=== PATIENT | male | born 1970 | race Caucasian/White ===

== ENCOUNTER 2019-05-22 12:10 | Emergency (ER) | payer MEDICAID ==
[~2019-05-22] VITALS: Ht 172.7 cm; Wt 65.0 kg
[~2019-05-22 12:10] MED LIST: LIDOcaine 1% W/epiNEPHrine 1:100,000 20ml vial ONE
[2019-05-22 12:16] VITALS: BP 131/79
[2019-05-22] MEDS ORDERED: CEPH-572 PO (12:51)
[2019-05-22] MEDS ORDERED: SULF1TAB49 PO (12:51)
== END 2019-05-22 13:03 | disposition home or self-care (01) ==
LOC: ER 12:11
DX: L02.612 Cutaneous abscess of left foot (principal); F11.10 Opioid abuse, uncomplicated; Z79.2 Long term (current) use of antibiotics
CPT/HCPCS: 10060; 99283

== ENCOUNTER 2019-05-24 18:00 | Emergency (ER) | payer MEDICAID ==
[~2019-05-24] VITALS: Ht 182.9 cm; Wt 81.0 kg
[~2019-05-24 18:00] MED LIST changes: +CEPH-572 PO; -LIDOcaine 1% W/epiNEPHrine 1:100,000 20ml vial ONE; +SULF1TAB49 PO
[2019-05-24 18:05] VITALS: BP 125/80
== END 2019-05-24 18:45 | disposition home or self-care (01) ==
LOC: ER 18:00
DX: L02.611 Cutaneous abscess of right foot (principal); Z48.01 Encounter for change or removal of surgical wound dressing; Z79.2 Long term (current) use of antibiotics
CPT/HCPCS: 99281

== ENCOUNTER 2020-01-26 18:31 | Inpatient (IN) | payer MEDICAID ==
[~2020-01-26] VITALS: Ht 182.9 cm; Wt 79.3 kg
[2020-01-26 19:50] LABS: BASOPHILS # (AUTO) 0.1 X10'3 (0-0.2); BASOPHILS % (AUTO) 0.4 % (0-1); EOSINOPHILS # (AUTO) 0.3 X10'3 (0-0.9); EOSINOPHILS % (AUTO) 1.9 % (0-6); HEMOGLOBIN 11.4 g/dl (14.0-17.9); LYMPHOCYTES # (AUTO) 2.3 X10'3 (1.1-4.8); LYMPHOCYTES % (AUTO) 15.2 % (21-51); MEAN CORPUSCULAR HGB CONC 33.6 g/dL (33.0-36.5); MEAN CORPUSCULAR VOLUME 86.5 FL (78-98); MEAN PLATELET VOLUME 7.4 FL (7.4-10.4); MONOCYTES # (AUTO) 1.2 X10'3 (0-0.9); NEUTROPHILS # (AUTO) 11.3 X10'3 (1.8-7.7); NEUTROPHILS % (AUTO) 74.5 % (42-75); PLATELET COUNT 407 X10'3 (140-440); RED BLOOD COUNT 3.94 X10'6 (4.70-6.10); RED CELL DISTRIBUTION WIDTH 13.8 % (11.5-14.5); WHITE BLOOD COUNT 15.2 X10'3 (4.5-11.0)
[2020-01-26 20:04] LABS: PARTIAL THROMBOPLASTIN TIME 32 SECONDS (22-32)
[2020-01-26 20:16] LABS: ALANINE AMINOTRANSFERASE 65 U/L (12-78); ALBUMIN/GLOBULIN RATIO 0.7 (1.1-1.5); ALKALINE PHOSPHATASE 44 IU/L (46-116); ANION GAP 9 (8-16); ASPARTATE AMINO TRANSFERASE 81 U/L (10-37); BILIRUBIN,TOTAL 0.3 MG/DL (0.1-1.0); C-REACTIVE PROTEIN 4.29 MG/DL (0.0-0.5); CALCIUM 8.2 MG/DL (8.5-10.1); CHLORIDE 101 MMOL/L (99-107); MAGNESIUM 1.9 MG/DL (1.5-2.4); POTASSIUM 3.5 MMOL/L (3.5-5.1); SODIUM 139 MMOL/L (135-145); TOTAL CARBON DIOXIDE 28.6 MMOL/L (24-32); TOTAL PROTEIN 7.2 G/DL (6.4-8.2); eGFR 59 ML/MIN
[2020-01-26 20:19] LABS: BLOOD UREA NITROGEN 10 MG/DL (7-18); BUN/CREATININE RATIO 7.7 (5.4-32.0); GLUCOSE 120 MG/DL (70-104)
[2020-01-26] MEDS ORDERED: normal saline 1000ML IV soln IVB ONE (20:40)
[2020-01-26] MEDS ORDERED: LIDOcaine 1% w/epiNEPHrine 1:200,000 30ml vial SQ ONE (22:15)
[2020-01-26] MEDS ORDERED: LORazepam 2 mg/ml vial IV ONE (22:20)
--- NOTE | 2020-01-26 22:30 | NUR ---
pa at bedside performing i&d on patient
[2020-01-26] MEDS ORDERED: NO HOME MEDS (22:32)
--- NOTE | 2020-01-26 22:50 | NUR ---
dressing wound with tech
[2020-01-26] MEDS ORDERED: magnesium hydroxide 30ml (MOM) UD suspension PO PRN (23:00)
[2020-01-26] MEDS ORDERED: ondansetron/PF 4mg/2ml inj IV PRN (23:00)
[2020-01-26] MEDS ORDERED: mag hydrox/Alum hydrox/simeth 30ml oral suspension PO PRN (23:00)
[2020-01-26] MEDS ORDERED: acetaminophen 325mg tablet PO PRN (23:00)
[2020-01-26] MEDS ORDERED: methadone 10mg tablet PO ONE (23:05)
--- NOTE | 2020-01-26 23:16 | NUR ---
pt given meds sleeping very comfortably but easy to arouse
[2020-01-27] MEDS ORDERED: TETanus/Pertussis (Acell)/Diphther VAC/PF (Tdap-Adult) 0.5ml syringe IMVAC ONE
[2020-01-27] MEDS: normal saline 1000ml 1,000 ML IV SCH ×2 (00:02→16:13)
--- NOTE | 2020-01-27 00:05 | NUR ---
pt sleeping but easy to arouse, ns was started at 100ml/hr
--- NOTE | 2020-01-27 00:13 | NUR ---
gave tetnus shot and a warm blanket
[2020-01-27 00:55] VITALS: BP 142/86
[2020-01-27] MEDS ORDERED: VANCOMYCIN 1,500MG inj. 1,500 MG in normal saline 500ml IV soln 500 ML IV ONE (01:00)
--- NOTE | 2020-01-27 01:08 | NUR ---
RC'D VERBAL REPORT FROM PHILLY AND ASSUMED CARE OF PATIENT WHEN HE ARRIVED VIA W/C AT 0050. PATIENT ASKING FOR PAIN MEDS BUT IMMEDIATELY CURLED UP ONTO R SIDE AND FELL ASLEEP. WAKES EASILY, GIVEN CALL LIGHT AND EXPLAINED ITS USE, URINAL AT BEDSIDE. IV FLDS INFUSING ORDERED. BED LOW, LOCKED AND 2 RAILS UP.
[2020-01-27 05:04] LABS: BASOPHILS # (AUTO) 0.1 X10'3 (0-0.2); BASOPHILS % (AUTO) 0.6 % (0-1); EOSINOPHILS # (AUTO) 0.3 X10'3 (0-0.9); EOSINOPHILS % (AUTO) 2.6 % (0-6); HEMATOCRIT 34.8 % (42.0-52.0); HEMOGLOBIN 11.4 g/dl (14.0-17.9); LYMPHOCYTES # (AUTO) 2.9 X10'3 (1.1-4.8); LYMPHOCYTES % (AUTO) 22.6 % (21-51); MEAN CORPUSCULAR HEMOGLOBIN 28.6 PG (27.0-31.0); MEAN CORPUSCULAR HGB CONC 32.8 g/dL (33.0-36.5); MEAN CORPUSCULAR VOLUME 87.2 FL (78-98); MEAN PLATELET VOLUME 7.4 FL (7.4-10.4); MONOCYTES % (AUTO) 8.1 % (2-12); NEUTROPHILS # (AUTO) 8.5 X10'3 (1.8-7.7); NEUTROPHILS % (AUTO) 66.1 % (42-75); PLATELET COUNT 394 X10'3 (140-440); RED BLOOD COUNT 3.99 X10'6 (4.70-6.10); RED CELL DISTRIBUTION WIDTH 13.7 % (11.5-14.5); WHITE BLOOD COUNT 12.8 X10'3 (4.5-11.0)
[2020-01-27 05:06] LABS: ALANINE AMINOTRANSFERASE 55 U/L (12-78); ALBUMIN 2.8 G/DL (3.4-5.0); ALBUMIN/GLOBULIN RATIO 0.6 (1.1-1.5); ALKALINE PHOSPHATASE 44 IU/L (46-116); ANION GAP 7 (8-16); ASPARTATE AMINO TRANSFERASE 62 U/L (10-37); BILIRUBIN,TOTAL 0.4 MG/DL (0.1-1.0); CALCIUM 8.3 MG/DL (8.5-10.1); CHLORIDE 109 MMOL/L (99-107); CREATININE 1.05 MG/DL (0.60-1.10); POTASSIUM 3.8 MMOL/L (3.5-5.1); SODIUM 143 MMOL/L (135-145); TOTAL CARBON DIOXIDE 26.6 MMOL/L (24-32); TOTAL PROTEIN 7.3 G/DL (6.4-8.2); eGFR 76 ML/MIN
[2020-01-27 05:11] LABS: GLUCOSE 107 MG/DL (70-104)
[2020-01-27 05:15] LABS: BLOOD UREA NITROGEN 10 MG/DL (7-18); BUN/CREATININE RATIO 9.5 (5.4-32.0)
--- NOTE | 2020-01-27 06:11 | NUR ---
REPORT GIVEN TO MOMO FELTON
[2020-01-27 07:00] VITALS: BP 123/72
[2020-01-27] MEDS: methadone 10mg tablet PO SCH ×2 (08:38→19:42)
[2020-01-27] MEDS: heparin, porcine 5000 units/ml vial SQ SCH ×2 (08:39→19:41)
[2020-01-27] MEDS: vancomycin/NS 1 GM ADD-VANTAGE 250 ML IV SCH ×2 (10:00→18:23)
[2020-01-27 11:00] VITALS: BP 124/74
[2020-01-27] MEDS: morphine 2 MG/ML inj. syringe IV PRN (13:59)
[2020-01-27] MEDS ORDERED: vancomycin/NS 1 GM ADD-VANTAGE 250 ML IV SCH (14:00)
--- NOTE | 2020-01-27 18:41 | NUR ---
Patient in room [facility]. I have received report from Mamta FELTON and had the opportunity to ask questions and assume patient care.
[2020-01-27] MEDS: lactobacillus rhamnosus 10,000 MMU CELLS/CAPSULE PO SCH (19:41)
[2020-01-27 20:00] VITALS: BP 152/92
[2020-01-28] VITALS: BP 127/72
[2020-01-28] MEDS: morphine 2 MG/ML inj. syringe IV PRN ×6 (01:31→22:38)
[2020-01-28] MEDS: vancomycin/NS 1 GM ADD-VANTAGE 250 ML IV SCH (01:31)
[2020-01-28] MEDS: normal saline 1000ml 1,000 ML IV SCH ×3 (04:33→14:58)
--- NOTE | 2020-01-28 06:12 | NUR ---
Problems reprioritized. Patient report given, questions answered & plan of care reviewed with MOMO FELTON.
[2020-01-28 08:00] VITALS: BP 149/89
[2020-01-28] MEDS: heparin, porcine 5000 units/ml vial SQ SCH ×2 (08:31→19:50)
[2020-01-28] MEDS: methadone 10mg tablet PO SCH ×2 (08:31→19:50)
[2020-01-28] MEDS: lactobacillus rhamnosus 10,000 MMU CELLS/CAPSULE PO SCH ×2 (08:31→19:49)
[2020-01-28] MEDS ORDERED: VANCOMYCIN LEVEL IV ONE (09:30)
[2020-01-28 09:53] LABS: BASOPHILS # (AUTO) 0.1 X10'3 (0-0.2); BASOPHILS % (AUTO) 0.9 % (0-1); EOSINOPHILS # (AUTO) 0.4 X10'3 (0-0.9); EOSINOPHILS % (AUTO) 5.2 % (0-6); HEMATOCRIT 36.5 % (42.0-52.0); HEMOGLOBIN 12.3 g/dl (14.0-17.9); LYMPHOCYTES % (AUTO) 26.1 % (21-51); MEAN CORPUSCULAR HEMOGLOBIN 29.5 PG (27.0-31.0); MEAN CORPUSCULAR HGB CONC 33.7 g/dL (33.0-36.5); MEAN CORPUSCULAR VOLUME 87.5 FL (78-98); MEAN PLATELET VOLUME 7.6 FL (7.4-10.4); MONOCYTES # (AUTO) 0.5 X10'3 (0-0.9); MONOCYTES % (AUTO) 6.3 % (2-12); NEUTROPHILS # (AUTO) 4.8 X10'3 (1.8-7.7); NEUTROPHILS % (AUTO) 61.5 % (42-75); PLATELET COUNT 425 X10'3 (140-440); RED BLOOD COUNT 4.17 X10'6 (4.70-6.10); RED CELL DISTRIBUTION WIDTH 13.8 % (11.5-14.5); WHITE BLOOD COUNT 7.8 X10'3 (4.5-11.0)
[2020-01-28 10:12] LABS: ALANINE AMINOTRANSFERASE 48 U/L (12-78); ALBUMIN 2.8 G/DL (3.4-5.0); ALBUMIN/GLOBULIN RATIO 0.6 (1.1-1.5); ALKALINE PHOSPHATASE 41 IU/L (46-116); ANION GAP 7 (8-16); ASPARTATE AMINO TRANSFERASE 35 U/L (10-37); BILIRUBIN,TOTAL 0.4 MG/DL (0.1-1.0); BLOOD UREA NITROGEN 9 MG/DL (7-18); BUN/CREATININE RATIO 8.7 (5.4-32.0); CALCIUM 8.5 MG/DL (8.5-10.1); CHLORIDE 107 MMOL/L (99-107); CREATININE 1.03 MG/DL (0.60-1.10); POTASSIUM 3.9 MMOL/L (3.5-5.1); SODIUM 143 MMOL/L (135-145); TOTAL CARBON DIOXIDE 28.7 MMOL/L (24-32); TOTAL PROTEIN 7.2 G/DL (6.4-8.2); eGFR 77 ML/MIN
[2020-01-28 10:14] LABS: GLUCOSE 106 MG/DL (70-104)
[2020-01-28 11:00] VITALS: BP 136/89
[2020-01-28] MEDS: VANCOmycin 1250MG/NS 250ml Bag 250 ML IV SCH ×2 (11:54→22:31)
--- NOTE | 2020-01-28 18:30 | NUR ---
Patient in room [facility]. I have received report from Mamta FELTON and had the opportunity to ask questions and assume patient care.
--- NOTE | 2020-01-28 19:50 | NUR ---
Patients PIV came out. Took 4 attempts and PIV 22 guage to R Hand.
[2020-01-28 20:00] VITALS: BP 129/79
--- NOTE | 2020-01-28 22:30 | NUR ---
Patients' new PIV to right hand came out and unable to save after he had taken his shower. New PIV to be inserted.
[2020-01-29] VITALS: BP 122/78
[2020-01-29] MEDS: normal saline 1000ml 1,000 ML IV SCH ×2 (00:58→03:56)
[2020-01-29] MEDS: morphine 2 MG/ML inj. syringe IV PRN ×3 (03:54→12:32)
[2020-01-29] MEDS: VANCOmycin 1250MG/NS 250ml Bag 250 ML IV SCH ×2 (04:03→12:26)
[2020-01-29 05:00] LABS: BASOPHILS # (AUTO) 0.1 X10'3 (0-0.2); BASOPHILS % (AUTO) 1.9 % (0-1); EOSINOPHILS # (AUTO) 0.5 X10'3 (0-0.9); EOSINOPHILS % (AUTO) 7.9 % (0-6); HEMATOCRIT 35.6 % (42.0-52.0); HEMOGLOBIN 11.9 g/dl (14.0-17.9); LYMPHOCYTES # (AUTO) 2.8 X10'3 (1.1-4.8); LYMPHOCYTES % (AUTO) 40.1 % (21-51); MEAN CORPUSCULAR HEMOGLOBIN 28.9 PG (27.0-31.0); MEAN CORPUSCULAR HGB CONC 33.4 g/dL (33.0-36.5); MEAN CORPUSCULAR VOLUME 86.7 FL (78-98); MEAN PLATELET VOLUME 7.4 FL (7.4-10.4); MONOCYTES # (AUTO) 0.5 X10'3 (0-0.9); MONOCYTES % (AUTO) 7.6 % (2-12); NEUTROPHILS % (AUTO) 42.5 % (42-75); PLATELET COUNT 426 X10'3 (140-440); RED CELL DISTRIBUTION WIDTH 13.6 % (11.5-14.5); WHITE BLOOD COUNT 6.9 X10'3 (4.5-11.0)
[2020-01-29 05:20] LABS: ALANINE AMINOTRANSFERASE 38 U/L (12-78); ALBUMIN 2.6 G/DL (3.4-5.0); ALBUMIN/GLOBULIN RATIO 0.6 (1.1-1.5); ALKALINE PHOSPHATASE 37 IU/L (46-116); ANION GAP 7 (8-16); ASPARTATE AMINO TRANSFERASE 25 U/L (10-37); BILIRUBIN,TOTAL 0.3 MG/DL (0.1-1.0); BLOOD UREA NITROGEN 16 MG/DL (7-18); BUN/CREATININE RATIO 16.5 (5.4-32.0); CALCIUM 8.3 MG/DL (8.5-10.1); CHLORIDE 108 MMOL/L (99-107); CREATININE 0.97 MG/DL (0.60-1.10); POTASSIUM 3.8 MMOL/L (3.5-5.1); SODIUM 142 MMOL/L (135-145); TOTAL PROTEIN 7.1 G/DL (6.4-8.2); eGFR 83 ML/MIN
[2020-01-29 05:25] LABS: GLUCOSE 93 MG/DL (70-104)
--- NOTE | 2020-01-29 06:08 | NUR ---
Problems reprioritized. Patient report given, questions answered & plan of care reviewed with Gilberto FELTON.
[2020-01-29 07:00] VITALS: BP 131/86
[2020-01-29] MEDS: methadone 10mg tablet PO SCH (08:23)
[2020-01-29] MEDS: heparin, porcine 5000 units/ml vial SQ SCH (08:23)
[2020-01-29] MEDS: lactobacillus rhamnosus 10,000 MMU CELLS/CAPSULE PO SCH (08:23)
[2020-01-29] MEDS ORDERED: VANCOMYCIN LEVEL IV ONE (11:30)
[2020-01-29] MEDS ORDERED: SULF1TAB49 PO (11:34)
[2020-01-29 12:00] VITALS: BP 136/81
--- NOTE | 2020-01-29 12:24 | NUR ---
Critical vanco of 20.2. paged regarding result, vanco due at 1200 spoke to charge nurse Buffy and recommended I contact the pharmacist. Spoke with the pharmacist and informed me the ideal range is up to 20 so stated to proceed with the next dose to keep it at the ideal range.
--- NOTE | 2020-01-29 13:15 | NUR ---
Spoke with Md Etienne, Bactrim DS tab had no dosage so he ordered Bactrim 160/800 to be called into the patient's pharmacy, [facility] on [address].
--- NOTE | 2020-01-29 13:21 | NUR ---
D/C medications called in by Resource nurse.
--- NOTE | 2020-01-29 13:56 | NUR ---
Wound care POC. Arrived at bedside for assessment. Pt is discharging today. Assessed abscess to right medial ankle. MD bedside. There is local edema, firm to palpation. Cleansed with wound cleanser, rinsed with saline, taught pt how to apply dressing with therahoney and silver alginate and secured with optifoam. Educated pt on follow up with outpatient wound care and the [facility] for continued care. Educated him on signs of infection that would need to be evaluated in the ED. Materials left for multiple dressing changes and all questions answered bedside.
--- NOTE | 2020-01-29 14:40 | NUR ---
Patient discharged home into the care of their aunt. Patient alert, oriented, and appropriate for discharge. Patient left with all belongings and verbalized understanding of discharge instructions. Patient will follow up with inpatient woundcare per orders. Medications called into [facility] on [address] patient will rock picker. Patient wound photos taken during woundcare. Patient IV removed, patient not on tele.
[2020-01-30] MEDS ORDERED: BACDS PO (19:23)
== END 2020-01-29 14:37 | disposition home or self-care (01) | DRG 383 ==
LOC: ER 18:31 → ED HOLD 22:58 → SUR 3N 01-27 00:50
PROVIDERS: ADMIT Internal Medicine; ATTEND Family Medicine
DX: L03.115 Cellulitis of right lower limb (principal); F11.10 Opioid abuse, uncomplicated; Z59.0 Homelessness; R01.1 Cardiac murmur, unspecified
CPT/HCPCS: 10060; 36415; 73600; 80053; 80202; 83605; 83735; 83880; 84145; 85025; 85610; 85651; 85730; 86140; 87040; 87081; 90715; 93005; 93306; 96374; 99285; G0378; J1644; J2060; J2270; J3370; J7030; J7040

== ENCOUNTER 2020-01-30 18:18 | Emergency (ER) | payer MEDICAID ==
[~2020-01-30] VITALS: Ht 185.4 cm; Wt 86.4 kg
[~2020-01-30 18:18] MED LIST changes: -CEPH-572 PO
[2020-01-30] MEDS ORDERED: BACDS PO (19:23)
[2020-01-30 19:55] VITALS: BP 132/90
== END 2020-01-30 19:57 | disposition home or self-care (01) ==
LOC: ER 18:18
DX: L02.415 Cutaneous abscess of right lower limb (principal); F11.90 Opioid use, unspecified, uncomplicated; Z86.14 Personal history of Methicillin resistant Staphylococcus aureus infection; Z60.2 Problems related to living alone; Z56.0 Unemployment, unspecified; Z59.0 Homelessness; Z79.2 Long term (current) use of antibiotics
CPT/HCPCS: 99283

== ENCOUNTER 2020-02-01 10:58 | Day surgery (SDC) | payer MEDICAID ==
[~2020-02-01 10:58] MED LIST changes: +BACDS PO
[2020-02-01] MEDS ORDERED: LIDOcaine 2% 5ml jelly ONE (11:31)
== END 2020-02-01 12:27 | disposition home or self-care (01) ==
LOC: WOUND CARE 10:58
PROVIDERS: ATTEND Nurse Practitioner
DX: L97.312 Non-pressure chronic ulcer of right ankle with fat layer exposed (principal); R01.1 Cardiac murmur, unspecified; F17.210 Nicotine dependence, cigarettes, uncomplicated; Z79.2 Long term (current) use of antibiotics; F11.90 Opioid use, unspecified, uncomplicated; Z86.14 Personal history of Methicillin resistant Staphylococcus aureus infection
CPT/HCPCS: 97597

== ENCOUNTER 2020-02-07 14:02 | Day surgery (SDC) | payer MEDICAID ==
[~2020-02-07 14:02] MED LIST changes: -SULF1TAB49 PO
[2020-02-07] MEDS ORDERED: LIDOcaine 2% 5ml jelly ONE (14:15)
== END 2020-02-07 14:45 | disposition home or self-care (01) ==
LOC: WOUND CARE 14:02
PROVIDERS: ATTEND Nurse Practitioner
DX: L97.312 Non-pressure chronic ulcer of right ankle with fat layer exposed (principal); F17.210 Nicotine dependence, cigarettes, uncomplicated; F11.90 Opioid use, unspecified, uncomplicated; Z79.01 Long term (current) use of anticoagulants; Z86.14 Personal history of Methicillin resistant Staphylococcus aureus infection
CPT/HCPCS: 97597

== ENCOUNTER 2020-03-03 09:41 | Emergency (ER) | payer MEDICAID ==
[~2020-03-03] VITALS: Ht 182.9 cm; Wt 86.4 kg
[2020-03-03] MEDS ORDERED: SULF1TAB49 PO (11:10)
[2020-03-03] MEDS ORDERED: CEPH500C5 PO (11:10)
[2020-03-03 11:22] VITALS: BP 149/91
== END 2020-03-03 11:23 | disposition home or self-care (01) ==
LOC: ER 09:43
DX: L02.11 Cutaneous abscess of neck (principal); F11.90 Opioid use, unspecified, uncomplicated; Z86.14 Personal history of Methicillin resistant Staphylococcus aureus infection; Z59.0 Homelessness; Z56.0 Unemployment, unspecified; Z79.2 Long term (current) use of antibiotics
CPT/HCPCS: 99283

== ENCOUNTER 2020-03-06 15:31 | Emergency (ER) | payer MEDICAID ==
[~2020-03-06] VITALS: Ht 185.4 cm; Wt 80.0 kg
[~2020-03-06 15:31] MED LIST changes: -BACDS PO; +CEPH500C5 PO; +SULF1TAB49 PO
[2020-03-06] MEDS ORDERED: NALO4SPR NS (16:55)
[2020-03-06 17:17] VITALS: BP 132/61
== END 2020-03-06 17:10 | disposition home or self-care (01) ==
LOC: ER 15:32
DX: L02.11 Cutaneous abscess of neck (principal); F11.90 Opioid use, unspecified, uncomplicated; Z86.14 Personal history of Methicillin resistant Staphylococcus aureus infection; Z59.0 Homelessness; Z56.0 Unemployment, unspecified; Z60.2 Problems related to living alone; Z79.899 Other long term (current) drug therapy
CPT/HCPCS: 99284

== ENCOUNTER 2020-10-13 14:35 | Emergency (ER) | payer MEDICAID ==
[~2020-10-13] VITALS: Ht 182.9 cm; Wt 88.6 kg
[~2020-10-13 14:35] MED LIST changes: +LIDOcaine 1% w/epiNEPHrine 1:200,000 30ml vial ONE; +NALO4SPR NS; -SULF1TAB49 PO
[2020-10-13 14:42] VITALS: BP 150/99
--- NOTE | 2020-10-13 15:33 | NUR ---
ROSITA Bates at bedside to evaluate patient.
--- NOTE | 2020-10-13 16:13 | NUR ---
Lab at bedside for blood draw.
[2020-10-13 16:33] LABS: BASOPHILS # (AUTO) 0.1 X10'3 (0-0.2); BASOPHILS % (AUTO) 0.9 % (0-1); EOSINOPHILS # (AUTO) 0.4 X10'3 (0-0.9); EOSINOPHILS % (AUTO) 5.5 % (0-6); HEMATOCRIT 37.5 % (42.0-52.0); HEMOGLOBIN 12.6 g/dl (14.0-17.9); LYMPHOCYTES # (AUTO) 2.3 X10'3 (1.1-4.8); LYMPHOCYTES % (AUTO) 34.2 % (21-51); MEAN CORPUSCULAR HEMOGLOBIN 28.5 PG (27.0-31.0); MEAN CORPUSCULAR HGB CONC 33.6 g/dL (33.0-36.5); MEAN CORPUSCULAR VOLUME 84.7 FL (78-98); MEAN PLATELET VOLUME 7.4 FL (7.4-10.4); MONOCYTES # (AUTO) 0.5 X10'3 (0-0.9); MONOCYTES % (AUTO) 7.1 % (2-12); NEUTROPHILS # (AUTO) 3.5 X10'3 (1.8-7.7); NEUTROPHILS % (AUTO) 52.3 % (42-75); PLATELET COUNT 450 X10'3 (140-440); RED BLOOD COUNT 4.43 X10'6 (4.70-6.10); RED CELL DISTRIBUTION WIDTH 13.9 % (11.5-14.5); WHITE BLOOD COUNT 6.6 X10'3 (4.5-11.0)
[2020-10-13 16:43] LABS: ALANINE AMINOTRANSFERASE 20 U/L (12-78); ALBUMIN 3.3 G/DL (3.4-5.0); ALBUMIN/GLOBULIN RATIO 0.6 (1.1-1.5); ALKALINE PHOSPHATASE 50 IU/L (46-116); ANION GAP 6 (8-16); ASPARTATE AMINO TRANSFERASE 23 U/L (10-37); BILIRUBIN,TOTAL 0.3 MG/DL (0.1-1.0); BLOOD UREA NITROGEN 19 MG/DL (7-18); BUN/CREATININE RATIO 19.6 (5.4-32.0); CALCIUM 8.5 MG/DL (8.5-10.1); CHLORIDE 102 MMOL/L (99-107); CREATININE 0.97 MG/DL (0.60-1.10); POTASSIUM 4.2 MMOL/L (3.5-5.1); SODIUM 137 MMOL/L (135-145); TOTAL CARBON DIOXIDE 28.6 MMOL/L (24-32); TOTAL PROTEIN 8.4 G/DL (6.4-8.2); eGFR 83 ML/MIN
[2020-10-13 16:44] LABS: GLUCOSE 113 MG/DL (70-104)
[2020-10-13] MEDS ORDERED: iohexol 300mg/ml 100ml inj. ONE (16:50)
[2020-10-13] MEDS ORDERED: cephalexin 250mg capsule PO ONE (17:05)
[2020-10-13] MEDS ORDERED: sulfamethoxazole/trimethoprim DS (800/160mg) tablet PO ONE (17:05)
--- NOTE | 2020-10-13 17:30 | NUR ---
Pt to CT via W/C
[2020-10-13] MEDS ORDERED: CEPH500C5 PO (17:35)
[2020-10-13] MEDS ORDERED: NALO4SPR NS (17:35)
[2020-10-13] MEDS ORDERED: SULF1TAB49 PO (17:35)
== END 2020-10-13 18:17 | disposition home or self-care (01) ==
LOC: ER 14:35
DX: L02.414 Cutaneous abscess of left upper limb (principal); L02.413 Cutaneous abscess of right upper limb; L03.114 Cellulitis of left upper limb; L03.113 Cellulitis of right upper limb; F11.10 Opioid abuse, uncomplicated
CPT/HCPCS: 36415; 73201; 80053; 83605; 84145; 85025; 99285; Q9967

== ENCOUNTER 2021-03-17 16:46 | Emergency (ER) | payer MEDICAID ==
[~2021-03-17] VITALS: Ht 182.9 cm; Wt 88.0 kg
[~2021-03-17 16:46] MED LIST changes: -CEPH500C5 PO; -LIDOcaine 1% w/epiNEPHrine 1:200,000 30ml vial ONE
[2021-03-17 18:57] VITALS: BP 154/109
[2021-03-17] MEDS ORDERED: cephalexin 500mg capsule PO ONE (19:15)
[2021-03-17] MEDS ORDERED: sulfamethoxazole/trimethoprim DS (800/160mg) tablet PO ONE (19:15)
[2021-03-17] MEDS ORDERED: NALO4SPR BOTHNARES (19:16)
[2021-03-17] MEDS ORDERED: CEPH-585 PO (19:16)
[2021-03-17] MEDS ORDERED: SULF1TAB49 PO (19:16)
== END 2021-03-17 19:36 | disposition home or self-care (01) ==
LOC: ER 16:46
DX: L03.116 Cellulitis of left lower limb (principal); L02.413 Cutaneous abscess of right upper limb; R11.0 Nausea; F15.90 Other stimulant use, unspecified, uncomplicated; F11.90 Opioid use, unspecified, uncomplicated; F17.200 Nicotine dependence, unspecified, uncomplicated; Z56.0 Unemployment, unspecified; Z86.14 Personal history of Methicillin resistant Staphylococcus aureus infection; Z86.19 Personal history of other infectious and parasitic diseases; Z79.2 Long term (current) use of antibiotics; Z79.899 Other long term (current) drug therapy
CPT/HCPCS: 99283

== ENCOUNTER 2021-04-14 13:23 | Emergency (ER) | payer MEDICAID ==
[~2021-04-14] VITALS: Ht 182.9 cm; Wt 81.8 kg
[~2021-04-14 13:23] MED LIST changes: +CEPH-585 PO; +LIDOcaine 1% 30ml preserv. free vial ONE; +NALO4SPR BOTHNARES; +SULF1TAB49 PO
[2021-04-14] MEDS ORDERED: SULF1TAB49 PO (19:03)
[2021-04-14 19:06] VITALS: BP 154/96
== END 2021-04-14 19:36 | disposition home or self-care (01) ==
LOC: ER 13:24
DX: T80.29XA Infection following other infusion, transfusion and therapeutic injection, initial encounter (principal); L02.416 Cutaneous abscess of left lower limb; M79.605 Pain in left leg; Z86.14 Personal history of Methicillin resistant Staphylococcus aureus infection; F15.90 Other stimulant use, unspecified, uncomplicated; F11.90 Opioid use, unspecified, uncomplicated; Z60.2 Problems related to living alone; Z56.0 Unemployment, unspecified; Z79.2 Long term (current) use of antibiotics; Z79.899 Other long term (current) drug therapy; X58.XXXA Exposure to other specified factors, initial encounter; Y93.89 Activity, other specified; Y92.89 Other specified places as the place of occurrence of the external cause; Y99.8 Other external cause status
CPT/HCPCS: 10060; 99283; J2001

== ENCOUNTER 2021-04-21 12:51 | Emergency (ER) | payer MEDICAID ==
[~2021-04-21 12:51] MED LIST changes: -LIDOcaine 1% 30ml preserv. free vial ONE
== END 2021-04-21 13:38 | disposition left against medical advice (07) ==
LOC: ER 12:52
DX: M79.89 Other specified soft tissue disorders (principal); Z53.21 Procedure and treatment not carried out due to patient leaving prior to being seen by health care provider

== ENCOUNTER 2023-08-05 09:27 | Emergency (ER) | payer MEDICAID ==
[~2023-08-05] VITALS: Ht 182.9 cm; Wt 86.4 kg
[~2023-08-05 09:27] MED LIST changes: -CEPH-585 PO; -SULF1TAB49 PO
[2023-08-05 09:28] VITALS: TEMP 97.8
[2023-08-05 09:55] VITALS: O2SAT 97
[2023-08-05 10:57] LABS: ALANINE AMINOTRANSFERASE 36 U/L (12-78); ALBUMIN 3.8 G/DL (3.4-5.0); ALBUMIN/GLOBULIN RATIO 0.9 (1.1-1.5); ALKALINE PHOSPHATASE 42 IU/L (46-116); ANION GAP 3 (8-16); ASPARTATE AMINO TRANSFERASE 34 U/L (10-37); BILIRUBIN,TOTAL 0.5 MG/DL (0.1-1.0); BLOOD UREA NITROGEN 26 MG/DL (7-18); BUN/CREATININE RATIO 25.5 (10.0-20.0); CHLORIDE 103 MMOL/L (99-107); CREATININE 1.02 MG/DL (0.60-1.10); GLUCOSE 101 MG/DL (70-104); POTASSIUM 3.9 MMOL/L (3.5-5.1); SODIUM 137 MMOL/L (135-145); TOTAL CARBON DIOXIDE 30.8 MMOL/L (24-32); eCRCL 95 ML/MIN; eGFR 77 ML/MIN
[2023-08-05 11:00] LABS: BASOPHILS # (AUTO) 0.1 X10'3 (0-0.2); BASOPHILS % (AUTO) 0.7 % (0-1); EOSINOPHILS # (AUTO) 0.3 X10'3 (0-0.9); EOSINOPHILS % (AUTO) 3.3 % (0-6); HEMATOCRIT 39.1 % (42.0-52.0); LYMPHOCYTES # (AUTO) 1.4 X10'3 (1.1-4.8); LYMPHOCYTES % (AUTO) 16.3 % (21-51); MEAN CORPUSCULAR HEMOGLOBIN 29.3 PG (27.0-31.0); MEAN CORPUSCULAR HGB CONC 33.2 g/dL (33.0-36.5); MEAN CORPUSCULAR VOLUME 88.4 FL (78-98); MEAN PLATELET VOLUME 7.4 FL (7.4-10.4); MONOCYTES # (AUTO) 0.7 X10'3 (0-0.9); MONOCYTES % (AUTO) 8.3 % (2-12); NEUTROPHILS # (AUTO) 6.2 X10'3 (1.8-7.7); NEUTROPHILS % (AUTO) 71.4 % (42-75); PLATELET COUNT 458 X10'3 (140-440); RED BLOOD COUNT 4.43 X10'6 (4.70-6.10); RED CELL DISTRIBUTION WIDTH 14.5 % (11.5-14.5); WHITE BLOOD COUNT 8.7 X10'3 (4.5-11.0)
[2023-08-05 11:01] VITALS: BP 155/101; PULSE 61; RESP 14
[2023-08-05 11:05] LABS: PRO BRAIN NATRIURETIC PEPTIDE 62 PG/ML (0-125)
== END 2023-08-05 11:31 ==
LOC: ER 09:27
DX: R07.89 Other chest pain (principal); J90 Pleural effusion, not elsewhere classified; F15.90 Other stimulant use, unspecified, uncomplicated; F11.90 Opioid use, unspecified, uncomplicated; Z60.2 Problems related to living alone; Z56.0 Unemployment, unspecified; Z86.14 Personal history of Methicillin resistant Staphylococcus aureus infection; Z79.899 Other long term (current) drug therapy
CPT/HCPCS: 36415; 71045; 80053; 83880; 84484; 85025; 93005; 99285

== ENCOUNTER 2023-08-19 22:41 | Emergency (ER) | payer MEDICAID ==
[~2023-08-19] VITALS: Ht 180.3 cm; Wt 81.8 kg
[2023-08-19 22:48] VITALS: BP 139/96; PULSE 75; RESP 18; TEMP 97.9; O2SAT 97
[2023-08-19 23:42] LABS: BASOPHILS # (AUTO) 0.1 X10'3 (0-0.2); BASOPHILS % (AUTO) 0.9 % (0-1); EOSINOPHILS # (AUTO) 0.2 X10'3 (0-0.9); EOSINOPHILS % (AUTO) 1.9 % (0-6); HEMATOCRIT 41.2 % (42.0-52.0); HEMOGLOBIN 14.3 g/dl (14.0-17.9); LYMPHOCYTES # (AUTO) 3.5 X10'3 (1.1-4.8); LYMPHOCYTES % (AUTO) 29.5 % (21-51); MEAN CORPUSCULAR HEMOGLOBIN 30.5 PG (27.0-31.0); MEAN CORPUSCULAR HGB CONC 34.7 g/dL (33.0-36.5); MEAN CORPUSCULAR VOLUME 87.9 FL (78-98); MEAN PLATELET VOLUME 7.5 FL (7.4-10.4); MONOCYTES # (AUTO) 0.7 X10'3 (0-0.9); MONOCYTES % (AUTO) 5.5 % (2-12); NEUTROPHILS # (AUTO) 7.4 X10'3 (1.8-7.7); NEUTROPHILS % (AUTO) 62.2 % (42-75); PLATELET COUNT 584 X10'3 (140-440); RED BLOOD COUNT 4.69 X10'6 (4.70-6.10); RED CELL DISTRIBUTION WIDTH 14.5 % (11.5-14.5)
[2023-08-19 23:50] LABS: INR 0.9 INR
[2023-08-19 23:52] LABS: ALANINE AMINOTRANSFERASE 24 U/L (12-78); ALBUMIN 4.1 G/DL (3.4-5.0); ALBUMIN/GLOBULIN RATIO 0.8 (1.1-1.5); ALKALINE PHOSPHATASE 44 IU/L (46-116); ANION GAP 9 (8-16); ASPARTATE AMINO TRANSFERASE 21 U/L (10-37); BILIRUBIN,TOTAL 0.3 MG/DL (0.1-1.0); BLOOD UREA NITROGEN 15 MG/DL (7-18); BUN/CREATININE RATIO 13.5 (10.0-20.0); CALCIUM 9.5 MG/DL (8.5-10.1); CHLORIDE 103 MMOL/L (99-107); CREATININE 1.11 MG/DL (0.60-1.10); GLUCOSE 116 MG/DL (70-104); POTASSIUM 4.1 MMOL/L (3.5-5.1); SODIUM 142 MMOL/L (135-145); TOTAL CARBON DIOXIDE 30.5 MMOL/L (24-32); TOTAL PROTEIN 9.1 G/DL (6.4-8.2); eCRCL 85 ML/MIN; eGFR 70 ML/MIN
[2023-08-19 23:59] LABS: PRO BRAIN NATRIURETIC PEPTIDE 61 PG/ML (0-125)
== END 2023-08-20 00:01 | disposition left against medical advice (07) ==
LOC: ER 22:41
DX: R07.89 Other chest pain (principal); I10 Essential (primary) hypertension; R11.0 Nausea; F15.90 Other stimulant use, unspecified, uncomplicated; F11.90 Opioid use, unspecified, uncomplicated; Z86.14 Personal history of Methicillin resistant Staphylococcus aureus infection; Z56.0 Unemployment, unspecified; Z79.899 Other long term (current) drug therapy
CPT/HCPCS: 36415; 71045; 80053; 83880; 84484; 85025; 85610; 93005; 99285

== ENCOUNTER 2023-10-19 15:09 | Emergency (ER) | payer MEDICAID ==
[~2023-10-19] VITALS: Ht 182.9 cm; Wt 81.8 kg
[2023-10-19 15:35] VITALS: BP 156/79; PULSE 83; RESP 16; TEMP 98.6; O2SAT 96
[2023-10-19] MEDS ORDERED: AMOX-580 PO (15:52)
== END 2023-10-19 15:59 ==
LOC: ER 15:10
DX: K08.89 Other specified disorders of teeth and supporting structures (principal); I10 Essential (primary) hypertension; F15.90 Other stimulant use, unspecified, uncomplicated; Z79.899 Other long term (current) drug therapy
CPT/HCPCS: 99283

== ENCOUNTER 2023-10-19 16:46 | Emergency (ER) | payer MEDICAID ==
[~2023-10-19] VITALS: Ht 182.9 cm; Wt 81.8 kg
[~2023-10-19 16:46] MED LIST changes: +AMOX-580 PO
[2023-10-19 17:00] VITALS: BP 157/79; PULSE 75; RESP 18; O2SAT 99
[2023-10-19 17:29] LABS: BASOPHILS # (AUTO) 0.1 X10'3 (0-0.2); BASOPHILS % (AUTO) 1.3 % (0-1); EOSINOPHILS # (AUTO) 0.3 X10'3 (0-0.9); EOSINOPHILS % (AUTO) 5.2 % (0-6); HEMATOCRIT 39.5 % (42.0-52.0); HEMOGLOBIN 13.2 g/dl (14.0-17.9); LYMPHOCYTES # (AUTO) 1.6 X10'3 (1.1-4.8); LYMPHOCYTES % (AUTO) 27.4 % (21-51); MEAN CORPUSCULAR HEMOGLOBIN 29.5 PG (27.0-31.0); MEAN CORPUSCULAR HGB CONC 33.3 g/dL (33.0-36.5); MEAN CORPUSCULAR VOLUME 88.8 FL (78-98); MEAN PLATELET VOLUME 7.5 FL (7.4-10.4); MONOCYTES # (AUTO) 0.8 X10'3 (0-0.9); MONOCYTES % (AUTO) 13.7 % (2-12); NEUTROPHILS % (AUTO) 52.4 % (42-75); PLATELET COUNT 484 X10'3 (140-440); RED BLOOD COUNT 4.45 X10'6 (4.70-6.10); RED CELL DISTRIBUTION WIDTH 14.9 % (11.5-14.5); WHITE BLOOD COUNT 5.7 X10'3 (4.5-11.0)
[2023-10-19 17:42] LABS: ALBUMIN 3.6 G/DL (3.4-5.0); ANION GAP 6 (8-16); BLOOD UREA NITROGEN 19 MG/DL (7-18); BUN/CREATININE RATIO 20.9 (10.0-20.0); CALCIUM 8.9 MG/DL (8.5-10.1); CHLORIDE 103 MMOL/L (99-107); CREATININE 0.91 MG/DL (0.60-1.10); GLUCOSE 112 MG/DL (70-104); POTASSIUM 3.9 MMOL/L (3.5-5.1); SODIUM 140 MMOL/L (135-145); TOTAL CARBON DIOXIDE 30.7 MMOL/L (24-32); eCRCL 105 ML/MIN; eGFR 88 ML/MIN
== END 2023-10-19 18:09 ==
LOC: ER 16:47
DX: R07.89 Other chest pain (principal); I10 Essential (primary) hypertension; F15.90 Other stimulant use, unspecified, uncomplicated; Z79.2 Long term (current) use of antibiotics; Z79.899 Other long term (current) drug therapy
CPT/HCPCS: 36415; 71045; 80048; 84484; 85025; 93005; 99285